=== PATIENT | male | born 1940 | race Caucasian/White ===

== ENCOUNTER 2021-12-26 12:29 | Outpatient (CLI) | payer MEDICARE, OTHER ==
[~2021-12-26 12:29] MED LIST: Iopamidol 300 61% 100 ML VIAL FS ONE
== END 2021-12-26 12:30 | disposition home or self-care (01) ==
LOC: CSHCT 12:29
PROVIDERS: ATTEND Family Medicine
DX: L03.115 Cellulitis of right lower limb (principal); L02.818 Cutaneous abscess of other sites; M60.051 Infective myositis, right thigh
CPT/HCPCS: 82565